=== PATIENT | male | born 1970 | race Caucasian/White ===

== ENCOUNTER 2025-07-15 21:38 | Emergency (ER) | payer SELFPAY ==
[2025-07-15] MEDS ORDERED: Sodium Chloride 0.9% 2.5 ML Syringe FLUSH PRN (21:40)
[2025-07-15] MEDS ORDERED: Sodium Chloride 0.9% 10 ML Syringe FLUSH PRN (21:40)
[2025-07-15 21:57] LABS: BASOPHILS ABSOLUTE AUTO 0.09 K/uL (0.00-0.20); BASOPHILS PERCENT AUTO 0.6 % (0.0-1.0); EOSINOPHILS ABSOLUTE AUTO 0.16 K/uL (0.00-0.45); EOSINOPHILS PERCENT AUTO 1.0 % (0.0-6.0); IMMATURE GRAN ABSOLUTE AUTO 0.05 K/uL (0.00-0.05); IMMATURE GRAN PERCENT AUTO 0.3 % (0.0-0.4); LYMPHOCYTES ABSOLUTE AUTO 2.47 K/uL (1.00-4.80); LYMPHOCYTES PERCENT AUTO 15.7 % (24.0-44.0); MEAN PLATELET VOLUME 8.6 fL (9.4-12.4); MONOCYTES ABSOLUTE AUTO 1.34 K/uL (0.00-0.80); MONOCYTES PERCENT AUTO 8.5 % (0.0-8.0); NEUTROPHILS ABSOLUTE AUTO 11.65 K/uL (1.80-7.70); NEUTROPHILS PERCENT AUTO 73.9 % (41.0-71.0); NRBC ABSOLUTE 0.00 K/uL (0.00-0.02); NRBC PERCENT 0.0 /100WBC (0.0-0.2); PLATELET COUNT,PLT 303 K/uL (150-400); RED BLOOD CELL COUNT 5.05 M/uL (4.52-5.90); WHITE BLOOD CELL COUNT,WBC 15.76 K/uL (3.9-11.3)
[2025-07-15 22:12] LABS: INR 0.98 (0.86-1.11)
[2025-07-15] MEDS: Ondansetron 4 MG/2 ML SDV IVPUSH ONE (22:21)
[2025-07-15 22:24] LABS: EST CRCL DRUG DOSING (CG) 121.00 mL/min
[2025-07-15 22:44] LABS: A/G RATIO 0.9 (0.9-1.6); ALANINE AMINOTRANSFERASE,ALT 42 IU/L (14-63); ASPARTATE AMNIOTRANSFERASE,AST 27 IU/L (15-37); BILIRUBIN TOTAL 0.5 mg/dL (0.2-1.0); BLOOD UREA NITROGEN,BUN 12 mg/dL (7.0-18.0); CARBON DIOXIDE,CO2 23.1 mmol/L (21.0-32.0); CHLORIDE,CL 106 mmol/L (98-107); CREATININE 0.9 mg/dL (0.8-1.3); ETHANOL BLOOD MEDICAL <3 mg/dL; GLUCOSE RANDOM 115 mg/dL (74-106); POTASSIUM,K 3.6 mmol/L (3.5-5.1); PRO B-TYPE NATRIUR PEPT,BNPPRO 124 pg/mL (0-125); PROTEIN TOTAL,TP 7.5 g/dL (6.4-8.2); SODIUM,NA 144 mmol/L (136-148)
[2025-07-15 22:45] LABS: ESTIMATED GFR 103 mL/min (>60)
[2025-07-15] MEDS: Iopamidol 755 MG/ML 500 ML Multipack Bottle IVPUSH STA (23:01)
[2025-07-15] MEDS: Ketorolac 30 MG/ML SDV IVPUSH ONE (23:10)
[2025-07-15] MEDS: Orphenadrine 60 MG/2 ML Inj IM ONE (23:22)
[2025-07-16] MEDS: methylPREDNISolone Sodium Succinate 125 MG/2 ML SDV IVPUSH ONE (00:07)
[2025-07-16] MEDS: cefTRIAXone 2 GM in Water For Injection, Sterile 20 ML IVPUSH ONE (00:07)
== END 2025-07-16 00:17 | disposition home or self-care (01) ==
LOC: MW.ED 21:38
DX: R07.9 Chest pain, unspecified (principal); R06.02 Shortness of breath; J18.9 Pneumonia, unspecified organism; R91.1 Solitary pulmonary nodule; Z72.9 Problem related to lifestyle, unspecified
CPT/HCPCS: 36415; 71045; 71275; 80053; 80307; 83690; 83735; 83880; 84484; 85025; 85379; 85610; 93005; 96372; 96374; 96375; 99285; A4216; A9270; J0696; J1885; J2270; J2360; J2405; J2919; Q9967; 93010; 99284